=== PATIENT | female | born 2000 | race Caucasian/White ===

== ENCOUNTER 2024-03-20 18:29 | Emergency (ER) | payer SELFPAY ==
[2024-03-20] VITALS (7 sets, daily range): BP systolic 124–155; BP diastolic 82–101; PULSE 83–93; RESP 18–20; TEMP 36.7–36.8; O2SAT 97–98; BMI 43.4
--- NOTE | 2024-03-20 19:31 | PC.NURSE ---
Pt awake alert and oriented Skin pink warm and dry. Resp full and easy Speech clear and appropriate.
--- NOTE | 2024-03-20 20:00 | PC.NURSE ---
Any charting done on this patient after 1899 done by this RN
--- NOTE | 2024-03-20 20:09 | ED_ITS ---
<Statement entered by Bahman Whitfield MD - 03/20/24 23:49> I was consulted by the WARNER, and we discussed the complexity of the problems being addressed. I approved the treatment and management plan for this patient's care in the emergency department, thus performing a substantive portion of the medical decision making. Bahman Whitfield MD Discharge Plan Disposition Patient Disposition: Home, Self-Care Condition: Good Prescriptions Prescriptions: New medroxyprogesterone 10 mg tablet 20 mg PO TID 7 Days Qty: 42 0RF Rx Instructions: begin day 19 of cycle Referrals Follow up/Referrals: Trina Arredondo DO [Staff Physician] - See instructions Provider,Randal, [Primary Care Provider] - See instructions Activity Restrictions/Add. Instructions Additional Instructions/Restrictions: I have referred you to [facility]. You need to be seen within 48 hours for recheck. Clinical Impressions Clinical Impression: DUB (dysfunctional uterine bleeding) Print Language Print Language: Danish Discharge ED Provider: Bahman Whitfield General Adult HPI General Chief complaint: Vaginal Bleeding Stated complaint: irregular menstrual cycle, heavy bleeding Time Seen by Provider: 03/20/24 20:09 Mode of Arrival: Ambulatory Source of Information: Patient Limitations: No Limitations Description of Symptoms (Recalled from ER Triage Doc. by RN): pt presents for evaluation of vaginal bleeding x1 week. Pt states bleeding is heavy, and normally has irregular periods but usually doesn't bleed like this. History of Present Illness HPI narrative: Patient presents for evaluation of dysfunctional uterine bleeding. Patient at baseline has irregular periods however she never has significantly heavy flow. For the last week she has had crampy abdominal pain and going through approximately 6 pads a day. She does not currently have primary care or [facility]. She denies any fever chills hemoptysis hematochezia melena dyspnea. Related Data Previous Rx's ?Medication ?Instructions ?Recorded medroxyprogesterone 10 mg tablet 20 mg (2 x 10 mg) PO TID 7 days 03/20/24 #42 tabs Allergies Allergy/AdvReac Type Severity Reaction Status Date / Time No Known Allergies Allergy Verified 03/20/24 20:01 [facility] Disclaimer: The information contained in this section may have been updated after the patient was seen, as this information can be updated by other users. Social History Smoking Status: Never smoker alcohol intake: never current occupational status: employed Travel in the last 8 weeks: None ROS Obtained: Yes Systems reviewed as appropriate & no additional complaints except as documented Physical Exam General General appearance: alert and in no apparent distress Respiratory Respiratory exam: Present normal lung sounds bilaterally Cardiovascular Cardiovascular exam: Present regular rate Neurological Exam Neurological exam: Present alert and oriented X3 Medical Decision Making Medical Records Screening: Per USPSTF and CDC recommendations, given the prevalence of disease in our region, it is our hospital?s policy to screen for HIV and viral Hepatitis for all patients aged 18 and over and those with ongoing risk factors. Micky Inquiry Pt receiving controlled substance: No Vital Signs: 03/20/24 18:30 03/20/24 19:36 03/20/24 20:00 Temperature 98.3 F Temperature Source Oral Pulse Rate 93 H Pulse Rate [Right] 85 Respiratory Rate 18 Blood Pressure 155/101 H 142/87 H Blood Pressure [Right Arm] 141/84 H Blood Pressure Mean 109 Blood Pressure Mean [Right Arm] 103 Blood Pressure Source Blood Pressure Source [Right Arm] Automatic Cuff Blood Pressure Position Blood Pressure Position [Right Arm] Sitting 02 Sat by Pulse Oximetry 98 97 Oxygen Delivery Method Room Air 03/20/24 20:30 03/20/24 21:00 03/20/24 21:30 Temperature Temperature Source Pulse Rate 92 H 92 H 83 Pulse Rate [Right] Respiratory Rate Blood Pressure 124/82 141/96 H 128/87 Blood Pressure [Right Arm] Blood Pressure Mean Blood Pressure Mean [Right Arm] Blood Pressure Source Blood Pressure Source [Right Arm] Blood Pressure Position Blood Pressure Position [Right Arm] 02 Sat by Pulse Oximetry 98 98 98 Oxygen Delivery Method Room Air Room Air 03/20/24 22:01 Temperature 98.0 F Temperature Source Oral Pulse Rate 83 Pulse Rate [Right] Respiratory Rate 20 Blood Pressure 128/87 Blood Pressure [Right Arm] Blood Pressure Mean Blood Pressure Mean [Right Arm] Blood Pressure Source Automatic Cuff Blood Pressure Source [Right Arm] Blood Pressure Position Sitting Blood Pressure Position [Right Arm] 02 Sat by Pulse Oximetry Oxygen Delivery Method Room Air Lab Data Lab results reviewed: Yes I reviewed the patient's lab results. Lab Results 03/20/24 20:10: WBC 9.6, RBC 4.48, Hgb 14.0, Hct 40.9, MCV 91.3, MCH 31.3 H, MCHC 34.2, RDW 11.9, Plt Count 355, MPV 9.1, Neut % (Auto) 57.0, Lymph % (Auto) 33.2, [place] % (Auto) 7.7, Eos % (Auto) 1.4, Baso % (Auto) 0.5, Neut # (Auto) 5.5, Lymph # (Auto) 3.2, [place] # (Auto) 0.7, Eos # (Auto) 0.1, Baso # (Auto) 0.1, PT 9.3, INR 0.83 L, Sodium 141, Potassium 4.1, Chloride 105, Carbon Dioxide 29, Anion Gap 11.1, BUN 12, Creatinine 1.00, Estimated Creat Clear 71, Estimated GFR 67, Est GFR ( Amer) 81, Glucose 90, Calcium 9.4, Total Bilirubin 0.4, AST 30, ALT 25, Alkaline Phosphatase 105, Total Protein 8.1, Albumin 4.5, Globulin 3.6 H, Albumin/Globulin Ratio 1.3, Serum HCG, Qual Negative 03/20/24 20:55: Urine Color Yellow, Urine Appearance Sl cloudy, Urine pH 7.5, Ur Specific [place] 1.020, Urine Protein Negative, Urine Glucose (UA) Negative, Urine Ketones Negative, Urine Blood 3+ A, Urine Nitrate Negative, Urine Bilirubin Negative, Urine Urobilinogen 0.2, Ur Leukocyte Esterase Negative, Urine RBC 20-50, Urine WBC Occasional, Ur Squamous Epith Cells 3-5, Urine Bacteria 2+ 03/20/24 20:10 03/20/24 20:10 Orders (Tests/Meds): ED MEDICATIONS Discontinued Medications Generic Name Dose Route Start Last Admin Trade Name Rg PRN Reason Stop Dose Admin Acetaminophen 1,000 mg 03/20/24 20:27 03/20/24 20:48 Acetaminophen 1,000mg/100ml Vial IV 03/20/24 20:28 1,000 mg ONCE ONE Administration Sodium Chloride 10 ml 03/20/24 20:13 Sodium Chloride 0.9% 10ml Flush Syringe IV 04/19/24 20:12 NEEDED PRN Maintain IV Site ORDERS Category Date Time Status CBC w/Auto Diff [Complete Blood Count Auto Diff] Stat Lab 03/20/24 20:10 Completed CMP [Comprehensive Metabolic Panel] Stat Lab 03/20/24 20:10 Completed HCG Qualitative, Serum Stat Lab 02/10/25 20:10 Completed INR [Prothrombin Time INR] Stat Lab 03/20/24 20:10 Completed UA [Urinalysis and Microscopic] Stat Lab 03/20/24 20:55 Completed Urine Culture Stat Micro 03/20/24 20:55 Received Medical Decision Narrative: In summary patient is a 24-year-old female who presents to the emergency department for evaluation of dysfunctional uterine bleeding. Patient is hemodynamically stable upon arrival, afebrile. Zickel exam is remarkable for mild suprapubic discomfort on palpation but no rebound or guarding or rigidity. Bowel sounds normal active.. Differential diagnosis includes dysfunctional uterine bleeding versus abnormal.. Initial workup will be conducted with hematologic labs serum test. Initial interventions were considered however patient is hemodynamically stable thus deferred for now. Initial workup reviewed by me shows that her white count is normal hemoglobin and hematocrit of 14.0 and 40.9 respectively with no neutrophilic shift, INR is 0.083 and the remainder of her hematologic labs are nonactionable. Serum is negative. Urinalysis shows 3+ of blood but is otherwise bland.. Given this I had interactive discussion with the patient regarding her workup and findings and via ACOG guidelines 20 mg Medroxyprogesteron 3 times a day for 7 days as recommended. Patient via patient directed decision making is agreeable to take that. She also has requested us refer her to an [facility]. Thus patient is appropriate for discharge with referral to [facility] and follow-up within 48 hours. Critical Care Critical Care Time Critical Care Time: No
[2024-03-20 20:36] LABS: Albumin Level 4.5 g/dl (3.5-5.0); Chloride 105 mmol/L (98-107); Potassium 4.1 mmoL/L (3.5-5.1); Sodium 141 mmol/L (136-145)
[2024-03-20 20:39] LABS: Alanine Aminotransferase 25 U/L (12-78); Albumin/Globulin Ratio 1.3 (1.1-1.8); Alkaline Phosphatase 105 U/L (38-126); Anion Gap 11.1 mEq/L (5-15); Aspartate Amino Transferase 30 U/L (14-36); Bilirubin,Total 0.4 mg/dl (0.2-1.3); Blood Urea Nitrogen 12 mg/dl (7-17); Carbon Dioxide 29 mmol/L (22.0-30.0); Creatinine Clearance Estimated 71 mL/min (50-200); Estimated Glomerular Filt Rate 67 ml/min (>60); GFR (African American) 81 ML/MIN (>60); Globulin 3.6 g/dL (1.3-3.2); Total Protein,Serum 8.1 g/dl (6.3-8.2)
[2024-03-20 20:40] LABS: Calcium 9.4 mg/dl (8.4-10.2); Glucose 90 mg/dl (74-100)
[2024-03-20] MEDS: ACETAMINOPHEN 1,000MG/100ML VIAL 1000 MG IV (20:48)
[2024-03-20 20:52] LABS: HCG Qualitative, Serum Negative (Negative)
[2024-03-20 20:59] LABS: Microscopic, Urine URINE MICROSCOPIC (MICROSCOPIC)
[2024-03-20 21:05] LABS: Appearance,Urine SL CLOUDY (Clear); Bilirubin,Urine Negative (Negative); Blood, Urine 3+ (Negative); Color,Urine YELLOW (Yellow); Glucose,Urine (UA) Negative (Negative); Ketones,Urine Negative (Negative); Leukocyte Esterase,Urine Negative (Negative); Nitrate,Urine Negative (Negative); PH,Urine 7.5 (5.0-8.5); Protein,Urine Negative (Negative); Urobilinogen,Urine 0.2 EU/dl (0.2)
[2024-03-20 21:09] LABS: Basophils # 0.1 K/mm3 (0-0.2); Basophils % 0.5 % (0.1-2.0); Eosinophils # 0.1 K/mm3 (0.0-0.4); Eosinophils % 1.4 % (0.1-12.0); Hematocrit 40.9 % (37.0-47.0); Lymphocytes # 3.2 K/mm3 (0.7-4.5); Lymphocytes % 33.2 % (10-50); Mean Corpuscular HGB Conc 34.2 g/dL (31.8-35.4); Mean Corpuscular Hemoglobin 31.3 pg (27.0-31.2); Mean Corpuscular Volume 91.3 fl (81-99); Mean Platelet Volume 9.1 fl (7.4-10.4); Monocytes # 0.7 K/mm3 (0.1-1.0); Monocytes % 7.7 % (1.7-9.3); Neutrophils # 5.5 K/mm3 (1.8-7.8); Platelet Count 355 K/mm3 (142-424); Red Blood Count 4.48 M/mm3 (4.20-5.40); Red Cell Distribution Width 11.9 % (11.5-17.5); White Blood Count 9.6 K/mm3 (4.8-10.8)
[2024-03-20 21:29] LABS: INR 0.83 (0.9-1.1); Prothrombin Time 9.3 seconds (9.2-12.1)
[2024-03-20 22:16] LABS: Bacteria,Urine 2+ /lpf; RBC,Urine 20-50 #/hpf (0-3); WBC,Urine Occasional #/hpf (0-3)
== END 2024-03-20 22:02 | disposition home or self-care (01) ==
PROVIDERS: Physician Assistant; Emergency Provider Emergency Medicine
DX: N93.8 Other specified abnormal uterine and vaginal bleeding (principal)
CPT/HCPCS: 80053; 81001; 84703; 85025; 85610; 87086; 96374; 99283; J0131